=== PATIENT | female | born 1995 | race Caucasian/White ===

== ENCOUNTER 2019-04-01 14:15 | Emergency (ER) | payer BC, MEDICAID ==
[2019-04-01 14:34] VITALS: BP 121/73
--- NOTE | 2019-04-01 14:44 | UC ---
Nausea/Vomiting/Diarrhea HPI - HPI Summary HPI Summary: 23-year-old female who is 8 weeks 2 days presents with complaints of severe nausea and vomiting. States she was in the emergency room 2 weeks ago to be evaluated for some left lower quadrant pain. She had a transvaginal ultrasound showing an intrauterine . She was diagnosed with a UTI and treated with a course of antibiotics. States since that time she has had persistent and severe nausea with 1-2 episodes of vomiting daily. Her last episode of vomiting was early this morning. . Reports there was some concern for possible gestational diabetes in her last although testing was negative. States she has a appointment scheduled with [facility] SERVICE REPRESENTATIVE on 04/24. Denies fever, chills, dizziness, weakness, abdominal pain, diarrhea, dysuria, urgency, hematuria, or vaginal bleeding. - History of Current Complaint Chief Complaint: UCGI Stated Complaint: VOMITING (8 WKS PREG) Time Seen by Provider: 04/01/19 14:32 Hx Obtained From: Patient ?: Yes Pain Intensity: 0 - Allergies/Home Medications Allergies/Adverse Reactions: Allergies Allergy/AdvReac Type Severity Reaction Status Date / Time Latex, Natural Rubber Allergy Hives Verified 04/01/19 14:34 morphine Allergy Dizziness Verified 04/01/19 14:34 Home Medications: Home Medications Pnv No.95/Ferrous Fum/Folic AC [ Multivitamin Tablet] 1 PO DAILY [History] PMH/Surg Hx/FS Hx/Imm Hx Previously Healthy: Yes - Surgical History Surgical History: Yes Surgery Procedure, Year, and Place: choley. T&A. tubes in ears - Family History Known Family History: Positive: Non-Contributory - Social History Occupation: Employed Full-time Lives: With Family Alcohol Use: None Substance Use Type: None Smoking Status (MU): Never Smoked Tobacco Review of Systems All Other Systems Reviewed And Are Negative: Yes Constitutional: Negative: Fever, Chills ENT: Negative: Sore Throat Respiratory: Positive: Negative Cardiovascular: Positive: Negative Gastrointestinal: Positive: Vomiting, Nausea. Negative: Abdominal Pain, Diarrhea Genitourinary: Negative: Dysuria, Hematuria, Frequency, Urgency, Abnormal Bleeding Musculoskeletal: Positive: Negative Neurological: Negative: Headache Is Patient Immunocompromised?: No Physical Exam - Summary Physical Exam Summary: GENERAL APPEARANCE: Well developed, obese, alert and cooperative female who appears to be in no acute distress. CARDIAC: Normal S1 and S2. No S3, S4 or murmurs. Rhythm is regular. There is no peripheral edema, cyanosis or pallor. Extremities are warm and well perfused. Capillary refill is less than 2 seconds. Peripheral pulses intact. LUNGS: Clear to auscultation without rales, rhonchi, wheezing or diminished breath sounds. ABDOMEN: Positive bowel sounds. Soft, nondistended, nontender. No guarding or rebound. No masses or hepatosplenomegally. No CVA tenderness. MUSKULOSKELETAL: ROM intact to all extremities. No joint erythema or tenderness. Normal muscular development. Normal gait. SKIN: Skin normal color, texture and turgor with no lesions or eruptions. Triage Information Reviewed: Yes Vital Signs: Initial Vital Signs Temp 98.3 F 04/01/19 14:26 Pulse 87 04/01/19 14:26 Resp 18 04/01/19 14:26 BP 121/73 04/01/19 14:26 Pulse Ox 100 04/01/19 14:26 Vital Signs Reviewed: Yes Naus/Vom/Diarrhea Course/Dx - Course Course Of Treatment: 23-year-old female who is 8 weeks 2 days presents with complaints of severe nausea and vomiting. States she was in the emergency room 2 weeks ago to be evaluated for some left lower quadrant pain. She had a transvaginal ultrasound showing an intrauterine . She was diagnosed with a UTI and treated with a course of antibiotics. States since that time she has had persistent and severe nausea with 1-2 episodes of vomiting daily. Her last episode of vomiting was early this morning. . Reports there was some concern for possible gestational diabetes in her last although testing was negative. States she has a appointment scheduled with [facility]ICE REPRESENTATIVE on 04/24. Denies fever, chills, dizziness, weakness, abdominal pain, diarrhea, dysuria, urgency, hematuria, or vaginal bleeding. Afebrile. Vital signs stable. Her exam was overall unremarkable. [id number] urinalysis showed trace leukocyte esterase, trace lysed blood, trace protein, and 1+ bilirubin. Urine culture was sent and is pending. Nekvb-[id number] fingerstick glucose was 97. Discussed findings with patient and discussed that her symptoms are likely hyperemesis gravidarum. Patient does not appear to be dehydrated. We discussed the risks and benefits of using an anti-emetic medications in and she is electing to not take any medications at this time. I am recommending pyridoxine 25 mg every 6 hours as needed for nausea and vomiting as well as dietary changes. She is to keep her appointment with [facility]ICE REPRESENTATIVE as scheduled. Anticipatory guidance and warning symptoms were discussed with the patient. Verbalizes understanding and agrees with plan of care. - Differential Dx/Diagnosis Differential Diagnoses - Female: Gastroenteritis (Viral), Gastroenteritis ( Bacterial), Vomiting, Gastritis, Dehydration Provider Diagnosis: Hyperemesis gravidarum Condition At Discharge: Stable Discharge - Sign-Out/Discharge Documenting (check all that apply): Patient Departure All imaging exams completed and their final reports reviewed: No Studies - Discharge Plan Condition: Stable Disposition: HOME Patient Education Materials: Hyperemesis Gravidarum (ED) Referrals: Kathleen Cummins, [employer] [Primary Care Provider] - Additional Instructions: Be sure to eat before you feel hungry to avoid an empty stomach which can often aggravate nausea. High-protein snacks such as nuts or crackers with peanut butter or cheese are often most helpful. Avoid any foods that seem to trigger your nausea. It is recommended that you avoid coffee, spicy foods, different foods, or very sweet foods. You should take fluids in small amounts frequently. Is recommended that you consume liquids at least 30 minutes before after solid food intake to minimize the effect of a full stomach. Fluids are typically better tolerated if cold, clear, carbonated or similar such as malena hansa, vomiting, or popsicles. Malena containing foods have also been shown to help with nausea and are safe in . Take pyridoxine (vitamin B6) 25 mg every 6 hours as needed for nausea and vomiting. Keep your appointment with P[facility] SERVICE REPRESENTATIVE as scheduled. Seek immediate medical attention in the emergency room if you develop fever greater than 100.5 F, have severe abdominal pain, persistent vomiting, you become weak or dizzy, have vaginal bleeding, or any worsening of symptoms. - Billing Disposition and Condition Condition: STABLE Disposition: Home
== END 2019-04-01 15:25 | disposition home or self-care (01) ==
LOC: UCCORT 14:15
DX: O21.0 Mild hyperemesis gravidarum (principal); Z87.440 Personal history of urinary (tract) infections; Z3A.08 8 weeks gestation of pregnancy; Z88.5 Allergy status to narcotic agent; Z91.040 Latex allergy status
CPT/HCPCS: 81003; 87086; 99201; G0463